=== PATIENT | female | born 1965 | race Caucasian/White ===

== ENCOUNTER 2024-12-08 15:30 | Emergency (ER) | payer BC ==
[~2024-12-08] VITALS: Ht 162.6 cm; Wt 97.0 kg
[2024-12-08 15:41] VITALS: TEMP 97.1
[2024-12-08 16:26] LABS: BASOPHILS # (AUTO) 0.1 X10'3 (0-0.2); BASOPHILS % (AUTO) 0.7 % (0-1); EOSINOPHILS # (AUTO) 0.2 X10'3 (0-0.9); EOSINOPHILS % (AUTO) 1.8 % (0-6); LYMPHOCYTES # (AUTO) 2.1 X10'3 (1.1-4.8); LYMPHOCYTES % (AUTO) 18.1 % (21-51); MEAN CORPUSCULAR HEMOGLOBIN 28.6 PG (27.0-31.0); MEAN CORPUSCULAR HGB CONC 33.4 g/dL (33.0-36.5); MEAN CORPUSCULAR VOLUME 85.6 FL (78-98); MEAN PLATELET VOLUME 8.2 FL (7.4-10.4); MONOCYTES # (AUTO) 0.6 X10'3 (0-0.9); MONOCYTES % (AUTO) 5.4 % (2-12); NEUTROPHILS # (AUTO) 8.5 X10'3 (1.8-7.7); PLATELET COUNT 189 X10'3 (140-440); RED BLOOD COUNT 5.25 X10'6 (4.20-5.60); RED CELL DISTRIBUTION WIDTH 15.4 % (11.5-14.5); WHITE BLOOD COUNT 11.5 X10'3 (4.5-11.0)
[2024-12-08 16:34] LABS: ALBUMIN 3.7 G/DL (3.4-5.0); ANION GAP 9 (8-16); BLOOD UREA NITROGEN 13 MG/DL (7-18); BUN/CREATININE RATIO 20.3 (10.0-20.0); CALCIUM 9.6 MG/DL (8.5-10.1); CHLORIDE 105 MMOL/L (99-107); CREATININE 0.64 MG/DL (0.40-0.90); GLUCOSE 113 MG/DL (70-104); POTASSIUM 3.9 MMOL/L (3.5-5.1); SODIUM 140 MMOL/L (135-145); TOTAL CARBON DIOXIDE 26.3 MMOL/L (24-32); eCRCL 82 ML/MIN; eGFR > 90 ML/MIN
--- NOTE | 2024-12-08 16:38 | RADIOLOGY REPORT ---
CHEST RADIOGRAPH Indication: RULE OUT SEPSIS Technique: Single frontal view of the chest was obtained Comparison: None FINDINGS: Lines and Tubes: None Lungs: Blunting of the left costophrenic angle. Mild elevation of the left hemidiaphragm. No pneumothorax. Cardiomediastinal contours: Unremarkable Bones: No acute osseous abnormality. 2nd lumbar fixation lencho and screw is noted. IMPRESSION: Blunting of the left costophrenic angle which may be from epicardial fat pad versus pleural effusion with associated atelectasis .
[2024-12-08] MEDS: LIDOcaine 1% W/epiNEPHrine 1:100,000 20ml vial IJ ONE (16:44)
[2024-12-08] MEDS: normal saline 1000ML IV soln IV ONE (16:44)
--- NOTE | 2024-12-08 17:35 | Physician Documentation ---
History of Present Illness ~ Chief Complaint: Abscess Stated Complaint: ABCESS Time Seen by MD: 15:49 OK to notify your PCP?: Yes Source: patient Mode of Arrival: POV Exam Limitations: no limitations HPI 59-year-old female with chief complaint painful area on her right labia which she states she noticed a few days ago. Pain is associated with swelling. Patient states she has not been able to see the area. No pre arrival treatment. No fever, chills, nausea. Tetanus Within 5 Years: No Medication Reconciliation Allergies: Coded Allergies: No Known Allergies (Unverified , 12/08/24) Past Medical History Past Medical History: No Pertinent History Review of Systems All Other Systems at this time: Reviewed and Negative Physical Exam Vital Signs: Temperature: 97.1, Source: Temporal, Heart Rate: 82, Respiratory Rate: 17, BP: 114/67, Pulse Oximetry: 93, Weight: 97.000 Oxygen Flow Rate: 0 Physical Exam GENERAL: Alert, no acute distress. HEENT: NCAT, EOMI, PERRL, normal oropharynx, moist oral mucosa. NECK: Supple, trachea midline. CARDIAC: Regular rate and rhythm, no murmurs, rubs, or gallops. Equal distal pulses. No lower extremity edema, cap refill less than 2 seconds. RESPIRATORY: Equal breath sounds, clear to auscultation bilaterally, no respiratory distress. GASTROINTESTINAL: Non distended, soft, nontender, No guarding or rebound. MUSCULOSKELETAL: Normal range of motion, nontender, no swelling. LEFT LEG IS PARALYZED DUE TO SPINAL INJURY. NEUROLOGICAL: Awake, alert, and oriented x 3. SKIN: Warm/dry, no pallor, no rash. JUST LATERAL TO RIGHT LABIA THERE IS EDEMATOUS INDURATED AREA MEASURING ABOUT 2CM X 2CM WITH SURROUNDING ERYTHEMA. PSYCH: Alert and appropriate. Affect congruent with mood. Speech is clear. Good eye contact. Procedures I & D Procedure : Anesthesia: Lidocaine w/ Epi Volume Anesthetic (mls): 4 Blade Size: 11 Incision: pus drained, blood drained Tolerated Procedure Well?: yes, no complications Progress Progress Note PT TOLERATED WELL PACKING PLACED SIMPLE DRESSING NURSE TO OBTAIN PURULENT DRAINAGE FROM SUCTION CANISTER FOR CULTURE Results/Orders Reviewed/noted all lab results: Yes Results/Orders Vital Signs 12/08/24 12/08/24 12/08/24 12/08/24 15:41 16:38 17:30 18:29 Temp 97.1 Pulse 109 82 88 87 Resp 18 17 17 16 B/P (MAP) 88/57 114/67 (83) 97/74 (82) 125/72 (89) Pulse Ox 94 93 96 97 O2 Flow Rate 0 0 0 Laboratory Tests Test 12/08/24 15:53 12/08/24 16:18 Glucometer 111 H White Blood Count 11.5 H Red Blood Count 5.25 Hemoglobin 15.0 Hematocrit 45.0 Mean Corpuscular Volume 85.6 Mean Corpuscular Hemoglobin 28.6 Mean Corpuscular Hemoglobin Concent 33.4 Red Cell Distribution Width 15.4 H Platelet Count 189 Mean Platelet Volume 8.2 Neutrophils (%) (Auto) 74.0 Lymphocytes (%) (Auto) 18.1 L Monocytes (%) (Auto) 5.4 Eosinophils (%) (Auto) 1.8 Basophils (%) (Auto) 0.7 Neutrophils # (Auto) 8.5 H Lymphocytes # (Auto) 2.1 Monocytes # (Auto) 0.6 Eosinophils # (Auto) 0.2 Basophils # (Auto) 0.1 CBC Comment Sodium Level 140 Potassium Level 3.9 Chloride Level 105 Carbon Dioxide Level 26.3 Anion Gap 9 Blood Urea Nitrogen 13 Creatinine 0.64 Estimated GFR/1.73 m2 > 90 BUN/Creatinine Ratio 20.3 H Glucose Level 113 H Lactic Acid Level 1.9 Calcium Level 9.6 Albumin 3.7 Procalcitonin < 0.05 Chemistry Comments Microbiology Date/Time Source Procedure Growth Status 12/08/24 16:18 Blood Iv Start Blood Culture - Preliminary NO GROWTH AFTER 1 DAY Resulted Medical Decision Making Differential Dx:Considerations: Include: Abscess, Bacteremia, Cellulitis, Erysipelas, Felon, Gas gangrene, Hidrademitis suppurativa, Impetigo, Lymphangitis, Osteromyelitis, Paronychia, Septicemia Departure Time of Disposition: 17:35 Disposition: 01 HOME / SELF CARE / HOMELESS Impression: Primary Impression: Abscess Condition: Stable Discharge Instructions: Skin Abscess, [id number] Additional Instructions: antibiotics sent to pharmacy remove the packing in 48hours return to er if increasing pain, fever, chills f/u with pcp to have rechecked in 72hours Referrals: NO PRIMARY CARE PROVIDER (PCP) Prescriptions Sulfamethoxazole/Trimethoprim (Bactrim Ds Tablet) 800 Mg-160 Mg Tablet 1 TAB PO Q12H for 10 Days, #20 TAB Prov: RONY JETER MD 12/09/24 Cephalexin*Monohydrate* (Keflex*) 500 Mg Capsule 1 CAP PO Q6H for 10 Days, #40 CAP Prov: RONY JETER MD 12/09/24 Education Educated: Patient Educated regarding: diagnosis, treatment, need for follow up Signature Scribe Signature: x Attestation: QUANG Garcia Dec 08, 2024 17:35 RONY JETER MD Dec 09, 2024 22:20
[2024-12-08] MEDS: sulfamethoxazole/trimethoprim DS (800/160mg) tablet PO ONE (17:48)
[2024-12-08] MEDS: cephalexin 250mg capsule PO ONE (17:48)
[2024-12-08 18:29] VITALS: BP 125/72; PULSE 87; RESP 16; O2SAT 97
[2024-12-09] MEDS ORDERED: SULF1TAB49 PO (22:20)
[2024-12-09] MEDS ORDERED: CEPH-585 PO (22:20)
== END 2024-12-08 19:24 | disposition home or self-care (01) ==
LOC: ER 15:31
DX: N76.4 Abscess of vulva (principal)
CPT/HCPCS: 36415; 56405; 71045; 80048; 82948; 83605; 84145; 85025; 87040; 96360; 99284; A6266; J3490; J7030; 10060; A6449